=== PATIENT | female | born 1985 | race Caucasian/White ===

== ENCOUNTER 2021-12-22 12:30 | Emergency (ER) | payer OTHER, SELFPAY ==
[2021-12-22 13:16] VITALS: BP 156/95; PULSE 114; RESP 18; TEMP 37.1; O2SAT 99; BMI 30.2
--- NOTE | 2021-12-22 13:16 | ED.GENADULT ---
HPI - General Adult General Chief complaint: Extremity Injury, Upper Stated complaint: Skin infection Related Data Allergies Allergy/AdvReac Type Severity Reaction Status Date / Time Unable to Assess Allergy Unverified 12/22/21 13:13 Course Course Course Narrative: -triage -noticed left forearm 2 weeks, IVDU, gotten much worse over last couple of days -no antibiotics, no fever / chills, [facility] to ER due to extensive cellulitis -f/u labs, needs ct scan -PE: necrotic tissue in Left forearm -Labs and CT pending, likely to be admitted
[2021-12-22 15:33] LABS: COVID-19 Test Negative (Negative); IDNOW Serial# 16C4AD1C
== END 2021-12-22 20:46 | disposition left against medical advice (07) ==
PROVIDERS: Emergency Medicine; Emergency Provider Emergency Medicine
DX: L03.114 Cellulitis of left upper limb (principal); Z20.822 Contact with and (suspected) exposure to COVID-19
CPT/HCPCS: 87635; 99282; 99283